=== PATIENT | female | born 1985 | race Caucasian/White ===

== ENCOUNTER 2022-07-15 07:41 | Emergency (ER) | payer OTHER ==
--- NOTE | 2022-07-15 07:43 | ERPHSYRPT ---
- History of Present Illness Time Seen by Provider: 07/15/22 07:43 Source: patient Exam Limitations: no limitations Physician History: This is a 36-year-old right-handed white female who was bit by a honeybee on the dorsal aspect of her right hand. In the last 2 days there is been increased swelling. There is no significant redness but it is swollen and there is some achiness present in the hand and on the forearm. Patient has been taking Benadryl intermittently without any benefit. Patient is allergic to penicillin. No respiratory issues. No facial swelling or tongue swelling or throat tightening. Timing/Duration: day(s) (2) Severity: mild Associated Symptoms: denies symptoms, No shortness of breath, No chest pain Allergies/Adverse Reactions: Penicillins Allergy (Verified 07/15/22 07:45) Travel Risk - International Travel Have you traveled outside of the country in past 3 weeks: No - Coronavirus Screening Are you exhibiting any of the following symptoms?: No Close contact with a COVID-19 positive Pt in past 14-21 Days: No - Review of Systems Constitutional: No Symptoms Eyes: No Symptoms Ears, Nose, & Throat: No Symptoms Respiratory: No Symptoms Cardiac: No Symptoms Abdominal/Gastrointestinal: No Symptoms Genitourinary Symptoms: No Symptoms Musculoskeletal: No Symptoms Skin: Other (Swelling right hand) Neurological: No Symptoms Psychological: No Symptoms Endocrine: No Symptoms Hematologic/Lymphatic: No Symptoms Immunological/Allergic: No Symptoms All Other Systems: Reviewed and Negative - Past Medical History Pertinent Past Medical History: No - Past Surgical History Past Surgical History: No - Nursing Vital Signs Nursing Vital Signs: Initial Vital Signs Temperature 96.8 F 07/15/22 07:46 Pulse Rate 62 07/15/22 07:46 Respiratory Rate 18 07/15/22 07:46 Blood Pressure 152/92 07/15/22 07:46 O2 Sat by Pulse Oximetry 98 07/15/22 07:46 Pain Scale Pain Intensity 9 - Physical Exam General Appearance: no apparent distress, alert, anxiety Eye Exam: PERRL/EOMI, eyes nml inspection Ears, Nose, Throat Exam: normal ENT inspection, moist mucous membranes Neck Exam: normal inspection, non-tender, supple, full range of motion Respiratory Exam: airway intact, No chest tenderness, No respiratory distress Gastrointestinal/Abdomen Exam: No tenderness Pelvic Exam: not done Rectal Exam: not done Back Exam: normal inspection, normal range of motion, No CVA tenderness, No vertebral tenderness Extremity Exam: normal range of motion, pelvis stable, swelling (Dorsal and palmar aspect of her right hand. Neurovascularly intact. Tendon function intact. No redness. No cellulitis), tenderness Neurologic Exam: alert, oriented x 3, cooperative, vb developer II-XII nml as tested, normal mood/affect, nml cerebellar function, nml station & gait, sensation nml Skin Exam: dry Lymphatic Exam: No adenopathy SpO2 Interpretation: normal O2 Delivery: Room Air - Course Nursing assessment & vital signs reviewed: Yes - Progress Progress: unchanged - Departure Departure Disposition: Home Clinical Impression: Allergic reaction Condition: Stable Critical Care Time: No Additional Instructions: May use ice pack or ice bath right hand 3 times a day for next 48 hours. If symptoms worsen return back to the emergency department for further evaluation management. If symptoms have improved but are persistent may follow-up with your primary care physician. Continue taking Benadryl 25 mg 3 times a day for the next 5 days. Prescriptions: Prednisone 10 mg [Deltasone 10 mg] 10 mg PO TID #12 tablet Famotidine 20 mg [Pepcid 20 MG] 20 mg PO DAILY #10 tablet
[2022-07-15 07:51] VITALS: BP 152/92; PULSE 62; O2SAT 98
[2022-07-15] MEDS ORDERED: Pepcid 20 MG PO ONE (07:56)
[2022-07-15] MEDS ORDERED: solu-MEDROL 125 MG, Sterile H2O 10 ml 2 ML IM ONE ×2 (07:56)
[2022-07-15] MEDS ORDERED: Pepcid 20 MG ONE (07:58)
[2022-07-15] MEDS ORDERED: Sterile H2O 10 ml IJ ONE (07:58)
[2022-07-15] MEDS ORDERED: solu-MEDROL ONE (07:59)
[2022-07-15] MEDS ORDERED: BENADRYL 25 MG CAPSULE ONE (07:59)
[2022-07-15] MEDS: BENADRYL 25 MG CAPSULE PO ONE (08:00)
== END 2022-07-15 08:30 | disposition home or self-care (01) ==
LOC: ED 07:41
DX: T63.441A Toxic effect of venom of bees, accidental (unintentional), initial encounter (principal); R60.0 Localized edema
CPT/HCPCS: 96372; 99283; J2930; A9270-GY

== ENCOUNTER 2024-04-23 16:50 | Emergency (ER) | payer OTHER ==
[2024-04-23 17:12] VITALS: TEMP 97; O2SAT 98
--- NOTE | 2024-04-23 17:37 | ERPHSYRPT ---
- History of Present Illness Time Seen by Provider: 04/23/24 17:37 Source: patient Exam Limitations: no limitations Patient Subjective Stated Complaint: PT HERE FOR WASP STING TO LEFT HAND. SHE TOOK A BENADRYL AT HOME, Triage Nursing Assessment: PT ALERT, RESP EASY, SKIN W/D/P. HAS SWELLING TO LEFT HAND, NO STINGER SEEN, STRONG RADIAL PULSE Physician History: The patient presents with a wasp sting. They have a history of severe local reactions to insect stings, requiring medical intervention in the past. They report that [id number] antihistamines are ineffective in managing their symptoms. The sting site is described as very swollen, painful, and itchy. They believe they removed the stinger, but due to the swelling, they are uncertain. They deny any systemic symptoms such as difficulty breathing. They have never used an EpiPen but are considering obtaining one for future incidents. Timing/Duration: today Severity: mild Modifying Factors: Improves With: cold therapy Associated Symptoms: rash (redness), No nausea, No vomiting, No shortness of breath, No diaphoresis, No chest pain Allergies/Adverse Reactions: Penicillins Allergy (Verified 04/23/24 17:05) Hx Influenza Vaccination/Date Given: No Hx Pneumococcal Vaccination/Date Given: No Immunizations Up to Date: Yes Travel Risk - International Travel Have you traveled outside of the country in past 3 weeks: No - Emerging Infectious Disease Are you exhibiting symptoms associated with any current EIDs: No - Review of Systems All Other Systems: Reviewed and Negative - Past Medical History Pertinent Past Medical History: No - Past Surgical History Past Surgical History: Yes Female Surgical History: Tubal Ligation Other Surgical History: SURG ON LEG - Female History Hx Last Menstrual Period: WEEK AGO Hx Now: No - Social History Smoking Status: Never smoker Exposure to second hand smoke: No Drug Use: none - Social Determinants of Health Will the patient participate in the screening: Declined to provide - Nursing Vital Signs Nursing Vital Signs: Initial Vital Signs Temperature 97.0 F 04/23/24 17:11 Pulse Rate 86 04/23/24 17:11 Respiratory Rate 18 04/23/24 17:11 Blood Pressure 154/104 04/23/24 17:11 O2 Sat by Pulse Oximetry 98 04/23/24 17:11 Pain Scale Pain Intensity 6 - Physical Exam Skin Exam: other (left hand swelling, redness) SpO2: 98 - Course Nursing assessment & vital signs reviewed: Yes Ordered Tests: Medication Summary Discontinued Medications Generic Name Dose Route Start Last Admin Trade Name John PRN Reason Stop Dose Admin Dexamethasone Sodium Phosphate 10 mg 04/23/24 17:37 04/23/24 17:55 Dexamethasone Sod Phosphate 10 Mg/Ml IM 04/23/24 17:38 10 mg STAT ONE Administration Dexamethasone Sodium Phosphate Confirm 04/23/24 17:53 Dexamethasone Sod Phosphate 10 Mg/Ml Administered 04/23/24 17:54 Dose 10 mg .ROUTE .STK-MED ONE - Progress Progress: improved Counseled pt/family regarding: diagnosis Medical Desision Making - Diagnostic Testing Diagnostic test were ordered, analyzed, and reviewed by me: No - Risk of complications The pt has a mod risk of morbidity or mortality based on: Need for prescription drug management - Departure Departure Disposition: Home Clinical Impression: Wasp sting, Allergic reaction to wasp sting Condition: Good Critical Care Time: No Referrals: [facility], [facility] [Primary Care Provider] - Follow up/PCP as directed Instructions: Insect Bites and Stings (DC) Prescriptions: EPINEPHrine [Epipen 2-Ulysses] 0.3 mg IM DIRECTIONS UNKNOWN PRN #2 units PRN Reason: Allergies Methylprednisolone Packet [Medrol Dosepack] 4 mg PO UD #30 packet
[2024-04-23] MEDS ORDERED: DECADRON 10MG INJ. ONE (17:53)
[2024-04-23] MEDS: DECADRON 10MG INJ. IM ONE (17:55)
[2024-04-23 17:58] VITALS: BP 129/92; PULSE 84; RESP 17
== END 2024-04-23 18:01 | disposition home or self-care (01) ==
LOC: ED 16:50
DX: T63.461A Toxic effect of venom of wasps, accidental (unintentional), initial encounter (principal); M79.89 Other specified soft tissue disorders
CPT/HCPCS: 96372; 99282; J1100